=== PATIENT | female | born 1955 | race Caucasian/White ===

== ENCOUNTER 2017-04-18 17:55 | Emergency (ER) | payer BC ==
[~2017-04-18] VITALS: Ht 160 cm; Wt 74.9 kg
[2017-04-18] MEDS ORDERED: OMEP20CA3 (18:13)
[2017-04-18] MEDS ORDERED: ASPIRIN 81 MG CHEW TABLET PO ONE (18:15)
[2017-04-18 18:34] LABS: BASO # 0.1 K/mm3 (0.0-0.2); BASO % 0.8 % (0.0-1.0); EOS # 0.2 K/mm3 (0.0-0.50); EOS % 2.8 % (0.0-3.0); LARGE UNSTAINED CELL # 0.1 K/mm3 (0.0-0.4); LARGE UNSTAINED CELL % 1.4 % (0.0-4.0); LYMPH # 3.2 K/mm3 (1.5-4.5); LYMPH % 39.1 % (24.0-44.0); MEAN CORPUSCULAR HEMOGLOBIN 32.5 pg (27.0-33.0); MEAN CORPUSCULAR HGB CONC 34.4 g/dl (32.0-36.5); MEAN CORPUSCULAR VOLUME 94.6 fl (80.0-96.0); MONO # 0.4 K/mm3 (0.0-0.8); MONO % 5.5 % (0.0-5.0); NEUTROPHILS % 50.4 % (36.0-66.0); PLATELET COUNT, AUTOMATED 202 k/mm3 (150-450); RED CELL DISTRIBUTION WIDTH 12.7 % (11.5-14.5); WHITE BLOOD COUNT 7.9 K/mm3 (4.0-10.0)
[2017-04-18 18:53] LABS: ALBUMIN 4.1 GM/DL (3.2-5.2); ALBUMIN/GLOBULIN RATIO 1.11 (1.00-1.93); ALKALINE PHOSPHATASE 167 U/L (45-117); ALT/SGPT 23 U/L (12-78); ANION GAP 4 MEQ/L (8-16); AST/SGOT 16 U/L (15-37); BILIRUBIN,DIRECT < 0.1 MG/DL (0.0-0.2); BILIRUBIN,TOTAL 0.3 MG/DL (0.2-1.0); BLOOD UREA NITROGEN 19 MG/DL (7-18); CARBON DIOXIDE LEVEL 28 MEQ/L (21-32); CHLORIDE LEVEL 109 MEQ/L (98-107); CREATININE FOR GFR 0.77 MG/DL (0.55-1.02); GLOMERULAR FILTRATION RATE > 60.0 (>45); GLUCOSE, FASTING 103 MG/DL (80-110); POTASSIUM SERUM 5.1 MEQ/L (3.5-5.1); SODIUM LEVEL 141 MEQ/L (136-145); TOTAL PROTEIN 7.8 GM/DL (6.4-8.2)
--- NOTE | 2017-04-18 19:08 | REP ---
Chest two views HISTORY: Chest pain Comparison: 09/04/2014 The lungs are clear. The heart is normal in size. The pulmonary vasculature is normal in appearance. Degenerative change is present in the thoracic spine. IMPRESSION: No acute disease. Signed by Jake Harris MD 04/18/2017 07:00 P
[2017-04-18 19:44] VITALS: BP 159/68
--- NOTE | 2017-04-20 05:58 | ECGEPIP ---
Stationary ECG Study [facility] - ED Test Date: 2017-04-18 Pat Name: COLIN FONTENOT Department: Room: - Gender: F Student Records Specialist: JT : 1955 Requested By: LIZ Paige Order Number: [id number] Reading MD: Azar Su Measurements Intervals [place] Rate: 68 P: 73 OK: 154 QRS: 56 QRSD: 81 T: 46 QT: 365 QTc: 391 Interpretive Statements SINUS RHYTHM Electronically Signed On 04-20-2017 5:58:27 EDT by Azar Su
== END 2017-04-18 19:54 | disposition home or self-care (01) ==
LOC: M ED 17:55
DX: R07.9 Chest pain, unspecified (principal); K21.9 Gastro-esophageal reflux disease without esophagitis; F17.200 Nicotine dependence, unspecified, uncomplicated; Z79.899 Other long term (current) drug therapy; Z91.011 Allergy to milk products

== ENCOUNTER → 2017-06-05 | Outpatient (CLI) | payer BC ==
[~2017-06-05] MED LIST: ISOVUE-370 76% 100ML VIAL (Q9967) As Ordered ONE; OMEP20CA3
--- NOTE | 2017-06-05 13:37 | REPMRS ---
Patient History The patient states she has not had a clinical breast exam in over a year. Patient is postmenopausal and has history of other cancer at age 26. No known family history of cancer. Digital Mammo Screening Bilat: June 05, 2017 - Exam #: [id number] Bilateral CC and MLO view(s) were taken. Technologist: Chante Shelley Technologist Prior study comparison: April 16, 2015, digital woman screen mammo, performed at [facility]. FINDINGS: There are scattered fibroglandular densities. There has been no change in the appearance of the mammogram from the prior studies. There is a mild amount of residual fibroglandular tissue which is fairly symmetric. There is no interval development of dominant mass, architectural distortion, or clustered microcalcification suggestive of malignancy. ASSESSMENT: BI-RADS/ACR category 1 mammogram. Negative. Recommendation Routine screening mammogram in 1 year (for women over age 40). This mammogram was interpreted with the aid of an FDA-approved computer-aided dectection system. Electronically Signed By: Zoran Felton MD 06/05/17 [id number]
[2017-06-05 14:54] LABS: FREE T4 1.08 NG/DL (0.76-1.46)
--- NOTE | 2017-06-06 10:39 | REP ---
Clinical: Pulmonary nodule. Technique: Axial contrast enhanced images from the thoracic inlet to the upper abdomen using 100 ml Isovue 370 intravenous contrast material with coronal and sagittal re-formations. Comparison: 01/12/2015. Findings: A stable 3 mm noncalcified nodule in the posterior right upper lobe (image 31) remains unchanged compared to 01/12/2015 and requires no further investigation. Lung portillo are otherwise well aerated, symmetric and clear. No further consolidation, significant nodule or mass lesion. No pleural effusion/reaction or pneumothorax. Tracheobronchial tree is patent. No axillary, hilar, or mediastinal adenopathy. Thoracic aorta without aneurysm or dissection. Atherosclerotic changes to the coronary arteries noted without cardiomegaly or pericardial effusion. Surrounding musculoskeletal structures are intact. Limited upper abdomen demonstrates normal bilateral adrenal glands. Impression: 1. Stable 3 mm noncalcified granuloma in the right upper lobe unchanged compared to 2014 and requires no further investigation. 2. No new acute or significant mediastinal or pleuroparenchymal process. Signed by Zi Poole MD 06/06/2017 10:31 A
== END ==
LOC: M RAD 10:39 → M LAB 10:39
PROVIDERS: ATTEND Physician Assistant
DX: R91.1 Solitary pulmonary nodule (principal)
CPT/HCPCS: 71260; 80061; 82306; 84439; 84443; 86803; G0202; Q9967

== ENCOUNTER → 2017-10-04 | Outpatient (REF) | payer BC ==
[2017-10-05 10:38] LABS: RUBELLA IgG QUALITATIVE IMMUNE (IMMUNE)
[2017-10-06 08:06] LABS: MUMPS VIRUS IgG ANTIBODY >300.0 AU/mL (Immune >10.9)
== END ==
LOC: M SFHCADAM 14:47
DX: Z02.1 Encounter for pre-employment examination (principal)

== ENCOUNTER → 2019-04-11 | Outpatient (CLI) | payer BC ==
[~2019-04-11] MED LIST changes: +CHAN1PAK11 PO; +FLUC150T PO; +IBUP-1022 PO; -ISOVUE-370 76% 100ML VIAL (Q9967) As Ordered ONE; +OMEP1CAP73 PO; -OMEP20CA3; +QC A650T3 PO; +RANI1TAB38 PO; +TUMS750C5 PO
--- NOTE | 2019-04-11 15:03 | REP ---
REASON: Lung mass followup. COMPARISON: Latest prior 12/29/2018. The lack of intravenous contrast decreases the sensitivity of the exam. CT I-logic protocol: The mediastinum and pulmonary viktoriya are essentially unchanged. There is no evidence of a mass or adenopathy. There are no pleural or pericardial effusions. No significant change is seen involving the imaged upper abdomen or imaged osseous structures. Evaluation of the lung field shows the left upper lobe nodule seen previously to have resolved with a minimal vague and subtle density remaining. The nodular density in the left lower lobe has completely abated. There are no new abnormal nodules, masses, or opacities. There is an incidental calcified granuloma in the right upper lobe. IMPRESSION: Marked improvement as described above. Electronically Signed by Aristeo Mckeon DO 04/11/2019 03:12 P
== END ==
LOC: M RAD 13:21
PROVIDERS: ATTEND Internal Medicine Pulmonary Disease
DX: R91.8 Other nonspecific abnormal finding of lung field (principal)

== ENCOUNTER 2019-05-09 06:42 | Day surgery (SDC) | payer BC ==
[~2019-05-09] VITALS: Ht 157.5 cm; Wt 68.9 kg
[~2019-05-09 06:42] MED LIST changes: -OMEP1CAP73 PO; +OMEP20CA4 PO
[2019-05-09] MEDS: NS 1,000 ML IV ONE (07:08)
[2019-05-09] MEDS ORDERED: LIDOCAINE 2% INJ 100 MG/5 ML SDV (FOR ANES.) As Ordered ONE (07:10)
[2019-05-09] MEDS ORDERED: PROPOFOL 200 MG/20 ML VIAL As Ordered ONE (07:10)
[2019-05-09] MEDS ORDERED: fentaNYL 100 MCG/2 ML INJECTION (J3010) As Ordered ONE (07:40)
--- NOTE | 2019-05-09 07:57 | ROOR ---
Patient Name: India Giron Procedure Date: 05/09/2019 7:30 AM Date of : 1955 Age: 63 Room: [facility] Gender: Female Note Status: Finalized Procedure: Upper Endoscopy + Biopsies Indications: Heartburn, Exclusion of Estrada's esophagus Providers: Dipesh Sanchez MD Referring MD: Austin Martinez MD Requesting Provider: Medicines: Monitored Anesthesia Care Complications: No immediate complications. Procedure: Pre-Anesthesia Assessment: - The heart rate, respiratory rate, oxygen saturations, blood pressure, adequacy of pulmonary ventilation, and response to care were monitored throughout the procedure. The Endoscope was introduced through the mouth, and advanced to the second part of duodenum. The upper GI endoscopy was accomplished without difficulty. The patient tolerated the procedure well. Findings: The Z-line was irregular and was found 35 cm from the incisors. Multiple biopsies were obtained with cold forceps for evaluation to rule out Estrada's Esophagus randomly at the gastroesophageal junction. A small hiatal hernia was present. Diffuse mildly erythematous mucosa without bleeding was found in the gastric antrum. Biopsies were taken with a cold forceps for Helicobacter pylori testing. The exam of the duodenum was otherwise normal. Impression: - Z-line irregular, 35 cm from the incisors. - Small hiatal hernia. - Erythematous mucosa in the antrum. Biopsied. - Multiple biopsies were obtained at the gastroesophageal junction. - The examination was otherwise normal. Recommendation: - Patient has a contact number available for emergencies. The signs and symptoms of potential delayed complications were discussed with the patient. Return to normal activities tomorrow. Written discharge instructions were provided to the patient. - Resume previous diet. - Discharge patient to home. - Follow an antireflux regimen. - Continue present medications. - Await pathology results. - Telephone GI clinic for pathology results in 1 week. - Return to referring physician. - The findings and recommendations were discussed with the patient's family. Dipesh Sanchez MD Dipesh Sanchez MD 05/09/2019 7:56:25 AM Electronically signed by Dipesh Sanchez MD Number of Addenda: 0 Note Initiated On: 05/09/2019 7:30 AM Estimated Blood Loss: Estimated blood loss: none.
[2019-05-09] MEDS ORDERED: ePHEDrine SULFATE 25 MG/5 ML(5MG/ML) SYRINGE As Ordered ONE (08:11)
--- NOTE | 2019-05-09 08:19 | ROOR ---
Patient Name: India Giron Procedure Date: 05/09/2019 7:31 AM Date of : 1955 Age: 63 Room: [facility] Gender: Female Note Status: Finalized Procedure: Total Colonoscopy to Cecum + Hot Snare Polypectomy + Hemoclip Indications: Screening for colorectal malignant neoplasm Providers: Dipesh Sanchez MD Referring MD: Austin Martinez MD Requesting Provider: Medicines: Monitored Anesthesia Care Complications: No immediate complications. Procedure: Pre-Anesthesia Assessment: - The heart rate, respiratory rate, oxygen saturations, blood pressure, adequacy of pulmonary ventilation, and response to care were monitored throughout the procedure. The Colonoscope was introduced through the anus and advanced to the cecum, identified by appendiceal orifice and ileocecal valve. The colonoscopy was performed without difficulty. The patient tolerated the procedure well. The quality of the bowel preparation was excellent. Findings: The perianal and digital rectal examinations were normal. Internal hemorrhoids were found during retroflexion. The hemorrhoids were small and Grade I (internal hemorrhoids that do not prolapse). Scattered small-mouthed diverticula were found in the recto-sigmoid colon, sigmoid colon and descending colon. A medium polyp was found at 20 cm proximal to the anus. The polyp was pedunculated. The polyp was removed with a hot snare. Resection and retrieval were complete. To prevent bleeding after the polypectomy, one hemostatic clip was successfully placed (MR conditional). There was no bleeding at the end of the procedure. The exam was otherwise without abnormality on direct and retroflexion views. Impression: - Internal hemorrhoids. - Diverticulosis in the recto-sigmoid colon, in the sigmoid colon and in the descending colon. - One medium polyp at 20 cm proximal to the anus, removed with a hot snare. Resected and retrieved. Clip (MR conditional) was placed. - The examination was otherwise normal on direct and retroflexion views. - The exam was otherwise normal to the cecum. Recommendation: - Patient has a contact number available for emergencies. The signs and symptoms of potential delayed complications were discussed with the patient. Return to normal activities tomorrow. Written discharge instructions were provided to the patient. - High fiber diet. - Discharge patient to home. - Continue present medications. - Await pathology results. - Telephone GI clinic for pathology results in 1 week. - Repeat colonoscopy in 5 years for surveillance based on pathology results. - Return to referring physician. - Check Portal Online for Path Results.([email or web address]) - The findings and recommendations were discussed with the patient's family. Dipesh Sanchez MD Dipesh Sanchez MD 05/09/2019 8:19:02 AM Electronically signed by Dipesh Sanchez MD Number of Addenda: 0 Note Initiated On: 05/09/2019 7:31 AM Estimated Blood Loss: Estimated blood loss: none.
[2019-05-09 08:30] VITALS: BP 134/83
== END 2019-05-09 08:46 | disposition home or self-care (01) ==
LOC: M OPP 06:42
PROVIDERS: ATTEND Internal Medicine Gastroenterology
DX: Z12.11 Encounter for screening for malignant neoplasm of colon (principal); K64.0 First degree hemorrhoids; D12.6 Benign neoplasm of colon, unspecified; K57.30 Diverticulosis of large intestine without perforation or abscess without bleeding; K22.8 Other specified diseases of esophagus; K44.9 Diaphragmatic hernia without obstruction or gangrene; K31.89 Other diseases of stomach and duodenum; R12 Heartburn; F17.210 Nicotine dependence, cigarettes, uncomplicated
CPT/HCPCS: 43239; 45385; 88305; J3010

== ENCOUNTER → 2020-02-04 | Outpatient (REF) | payer BC ==
[~2020-02-04] MED LIST changes: +OMEP1CAP73 PO; -OMEP20CA4 PO
[2020-02-04 17:19] LABS: BASO % 0.3 % (0.0-1.0); EOS # 0.1 10^3/uL (0.0-0.5); EOS % 0.9 % (0.0-3.0); HEMOGLOBIN 15.8 g/dl (12.0-15.5); LYMPH # 2.8 10^3/uL (1.5-5.0); LYMPH % 30.6 % (24.0-44.0); MEAN CORPUSCULAR HEMOGLOBIN 31.9 pg (27.0-33.0); MEAN CORPUSCULAR HGB CONC 32.9 g/dl (32.0-36.5); MEAN CORPUSCULAR VOLUME 96.8 fl (80.0-96.0); MONO # 0.7 10^3/uL (0.0-0.8); MONO % 7.5 % (0.0-5.0); NEUTROPHILS # 5.5 10^3/uL (1.5-8.5); NEUTROPHILS % 60.5 % (36.0-66.0); PLATELET COUNT, AUTOMATED 215 10^3/uL (150-450); RED BLOOD COUNT 4.96 10^6/uL (4.00-5.40); WHITE BLOOD COUNT 9.1 10^3/uL (4.0-10.0)
[2020-02-04 17:39] LABS: ALBUMIN 3.9 GM/DL (3.2-5.2); ALT/SGPT 18 U/L (12-78); BILIRUBIN,TOTAL 0.3 MG/DL (0.2-1.0); BLOOD UREA NITROGEN 19 MG/DL (7-18); C REACTIVE PROTEIN QUANTITATIV < 0.30 MG/DL (0.00-0.30); CALCIUM LEVEL 9.9 MG/DL (8.8-10.2); CARBON DIOXIDE LEVEL 30 MEQ/L (21-32); CHLORIDE LEVEL 109 MEQ/L (98-107); CREATININE FOR GFR 0.83 MG/DL (0.55-1.30); GLOMERULAR FILTRATION RATE > 60.0 (>45); GLUCOSE, FASTING 118 MG/DL (70-100); POTASSIUM SERUM 4.4 MEQ/L (3.5-5.1); SODIUM LEVEL 143 MEQ/L (136-145); TOTAL PROTEIN 7.1 GM/DL (6.4-8.2)
[2020-02-04 19:34] LABS: ERYTHROCYTE SEDIMENTATION RATE 6 mm/hr (0-30)
== END ==
LOC: M SFHCADAM 14:21
PROVIDERS: ATTEND Family Medicine
DX: H46.9 Unspecified optic neuritis (principal)

== ENCOUNTER → 2020-05-04 | Outpatient (CLI) | payer BC ==
--- NOTE | 2020-05-20 18:04 | REP ---
LOW DOSE LUNG SCREENING CT: 05/04/20 CLINICAL: Nicotine dependence. COMPARISON: 04/11/19, 01/12/15, 06/05/17. FINDINGS: Bilateral lung portillo are well aerated. Minimal chronic scarring along with few chronic nodules including 3mm centrally calcified nodule in the post periphery of the right lung (image 31) remain stable. The current examination demonstrates few non-solid densities primarily noted in the left lung measuring up to 8mm (image 35). No further consolidation, suspicious nodule or mass lesion noted. No effusion. No pneumothorax. Tracheobronchial tree is patent. IMPRESSION: 1. Few stable chronic changes unchanged compared through 2017. 2. Small nonsolid densities up to 8mm. Findings constitute Lung RADS category 2 and management recommendations include annual low dose CT surveillance. MTDD
== END ==
LOC: M RAD 12:52
PROVIDERS: ATTEND Internal Medicine Pulmonary Disease
DX: F17.210 Nicotine dependence, cigarettes, uncomplicated (principal)

== ENCOUNTER → 2020-05-04 | Outpatient (REF) | payer BC ==
[2020-05-04 18:01] LABS: HEMOGLOBIN A1c 5.8 %
[2020-05-04 18:18] LABS: CHOLESTEROL RISK RATIO 3.59 (<5); THYROID STIMULATING HORMONE 0.812 uIU/ML (0.358-3.740)
== END ==
LOC: M SFHCADAM 16:36
PROVIDERS: ATTEND Physician Assistant
DX: D75.1 Secondary polycythemia (principal); D75.89 Other specified diseases of blood and blood-forming organs; H47.019 Ischemic optic neuropathy, unspecified eye; H53.9 Unspecified visual disturbance

== ENCOUNTER → 2020-06-22 | Outpatient (CLI) | payer BC ==
[~2020-06-22] MED LIST changes: +PROHANCE 279.3MG/ML 15ML VIAL As Ordered ONE
--- NOTE | 2020-06-23 08:50 | REP ---
INDICATION: NEW ON SET OF ZAPIEN'S. COMPARISON: April 28, 2010.. TECHNIQUE: Axial and sagittal imaging planes are utilized for T1 and T2-weighted scans. Sequences include spin-echo, fast spin echo, FLAIR, and diffusion weighted sequences. 15 mL of intravenous ProHance was administered and postcontrast imaging is included. FINDINGS: No bony calvarial defect is seen. Craniocervical junction and upper cervical cord are unremarkable. There is no MR evidence of significant paranasal sinus disease. The facial and orbital soft tissues are unremarkable. FLAIR and turbo spin echo T2 weighted scans demonstrate multiple foci of subcortical and periventricular white matter hyperintensities in the frontal and parietal lobes and to a lesser extent temporal lobes bilaterally. These are more extensive and more numerous than on the 04/28/2010 study. There are nonspecific. Small vessel atherosclerotic changes for versus demyelinating lesions versus areas of gliosis associated with migraine. There is no evidence of restricted diffusion in any of these or or other evidence of restricted diffusion on diffusion-weighted scans. No evidence of infarct. No intracranial mass or extra-axial fluid collection is seen. Postcontrast images show enhancement in normal vasculature. No abnormal gadolinium enhancement is seen intracranially. IMPRESSION: Multifocal periventricular and subcortical white matter T2 hyperintensities, increased in number and extent from the April 28, 2010 prior study. Nonspecific as above. Most likely small vessel atherosclerotic changes. Otherwise no acute intracranial abnormality. <Electronically signed by Anthony Apodaca > 06/23/20 [id number]
== END ==
LOC: M RAD 13:39
PROVIDERS: ATTEND Physician Assistant
DX: R51.9 Headache, unspecified (principal); R90.82 White matter disease, unspecified
CPT/HCPCS: 70553; A9576

== ENCOUNTER → 2020-11-12 | Outpatient (CLI) | payer BC ==
[~2020-11-12] MED LIST changes: -PROHANCE 279.3MG/ML 15ML VIAL As Ordered ONE
--- NOTE | 2020-11-12 17:24 | REP ---
INDICATION: ABN FINDING OF LUNG. COMPARISON: Comparison chest CT studies are reviewed from May 04, 2020, April 11, 2019, and December 29, 2018.. TECHNIQUE: Helical scanning is acquired. 3 mm axial images are generated. Coronal and sagittal MPR and coronal MIP images are generated. FINDINGS: Preliminary digital senior copywriter radiographs are unremarkable. No infiltrate is seen. There is no evidence of pleural effusion or pericardial effusion. No endobronchial disease is seen. No hilar or mediastinal mass or adenopathy is observed. Mild left coronary artery vascular calcification is seen. Normal adrenal glands are observed. There is a small accessory splenule in the left upper quadrant. No extra thoracic mass or adenopathy is seen. In the lung portillo there is a stable 3 mm noncalcified pulmonary nodule in the left upper lobe. This is unchanged from December 29, 2018. There is a granulomatous calcification in the left lower lobe which is unchanged. A 2-3 mm noncalcified nodule is seen in the right middle lobe on page 51 of 112 in series 201 of today's study. This is visible in retrospect and is unchanged from December 29, 2018 as well. no new pulmonary nodule is appreciated. No other pulmonary nodule is seen. No bony destructive lesion is appreciated. IMPRESSION: Stable pulmonary nodular densities as above. No active cardiopulmonary disease. <Electronically signed by Anthony Apodaca > 11/12/20 [id number]
== END ==
LOC: M RAD 14:28
PROVIDERS: ATTEND Internal Medicine Pulmonary Disease
DX: R91.8 Other nonspecific abnormal finding of lung field (principal)

== ENCOUNTER → 2022-12-25 | Outpatient (CLI) | payer MEDICARE ==
[~2022-12-25] MED LIST changes: -FLUC150T PO; +FLUC150T9 PO
== END ==
LOC: M RAD 14:25
PROVIDERS: ATTEND Internal Medicine Pulmonary Disease
DX: Z12.2 Encounter for screening for malignant neoplasm of respiratory organs (principal); F17.210 Nicotine dependence, cigarettes, uncomplicated; R91.1 Solitary pulmonary nodule

== ENCOUNTER → 2023-06-19 | Outpatient (CLI) | payer MEDICARE ==
[~2023-06-19] MED LIST changes: +E-Z-PAQUE 96% w/w SUSP 176GM BTL As Ordered ONE; +VARIBAR NECTAR 40% w/v 240ML SUSP BTL As Ordered ONE; +VARIBAR PUDDING 40% w/v 230ML TUBE As Ordered ONE
== END ==
LOC: M RAD 11:12
PROVIDERS: ATTEND Otolaryngology
DX: R13.19 Other dysphagia (principal)

== ENCOUNTER → 2023-06-22 | Outpatient (REF) | payer MEDICARE ==
[~2023-06-22] MED LIST changes: -E-Z-PAQUE 96% w/w SUSP 176GM BTL As Ordered ONE; -VARIBAR NECTAR 40% w/v 240ML SUSP BTL As Ordered ONE; -VARIBAR PUDDING 40% w/v 230ML TUBE As Ordered ONE
[2023-06-22 17:31] LABS: BASO % 0.5 % (0.0-1.0); EOS # 0.1 10^3/uL (0.0-0.5); EOS % 1.2 % (0.0-3.0); HEMATOCRIT 49.3 % (36.0-47.0); HEMOGLOBIN 15.9 g/dl (12.0-15.5); LYMPH # 2.2 10^3/uL (1.5-5.0); LYMPH % 33.7 % (24.0-44.0); MEAN CORPUSCULAR HEMOGLOBIN 31.8 pg (27.0-33.0); MEAN CORPUSCULAR HGB CONC 32.3 g/dl (32.0-36.5); MEAN CORPUSCULAR VOLUME 98.6 fl (80.0-96.0); MONO # 0.5 10^3/uL (0.0-0.8); MONO % 7.9 % (2.0-8.0); NEUTROPHILS # 3.7 10^3/uL (1.5-8.5); NEUTROPHILS % 56.5 % (36.0-66.0); PLATELET COUNT, AUTOMATED 246 10^3/uL (150-450); WHITE BLOOD COUNT 6.6 10^3/uL (4.0-10.0)
[2023-06-22 17:49] LABS: HEMOGLOBIN A1c 5.3 % (4.0-6.0)
[2023-06-22 17:52] LABS: CREATININE, URINE 96.8 MG/DL
[2023-06-22 17:53] LABS: MAU/CREAT RATIO 5.1 MCG/MG (0.0-30.0)
[2023-06-22 17:57] LABS: FREE T4 0.95 NG/DL (0.89-1.76); THYROID STIMULATING HORMONE 2.614 uIU/ML (0.55-4.78)
[2023-06-22 18:00] LABS: ALBUMIN 4.3 G/DL (3.2-5.2); ALKALINE PHOSPHATASE 188 U/L (46-116); ALT/SGPT 12 U/L (7.0-40); AST/SGOT 17 U/L (<34); BILIRUBIN,TOTAL 0.4 MG/DL (0.3-1.2); BLOOD UREA NITROGEN 13 MG/DL (9-23); CALCIUM LEVEL 10.5 MG/DL (8.3-10.6); CARBON DIOXIDE LEVEL 29 MMOL/L (20-31); CHLORIDE LEVEL 108 MMOL/L (98-107); CHOLESTEROL LEVEL 170 MG/DL (<200); CHOLESTEROL RISK RATIO 3.49 (<5); CREATININE FOR GFR 0.57 MG/DL (0.55-1.30); FOLATE > 24.0 NG/ML (>5.4); GLOMERULAR FILTRATION RATE > 60.0 (>45); GLUCOSE, FASTING 87 MG/DL (74-106); HDL CHOLESTEROL 48.7 MG/DL (>40); LDL CHOLESTEROL 85.1 MG/DL (<100); NON-HDL-C 121.3 MG/DL; POTASSIUM SERUM 4.4 MMOL/L (3.5-5.1); SODIUM LEVEL 144 MMOL/L (136-145); TOTAL PROTEIN 7.3 G/DL (5.7-8.2); TRIGLYCERIDES LEVEL 181 MG/DL (<150)
[2023-06-22 18:02] LABS: VITAMIN B12 LEVEL 259 PG/ML (211-911)
== END ==
LOC: M SFHCADAM 12:38
PROVIDERS: ATTEND Physician Assistant
DX: Z00.00 Encounter for general adult medical examination without abnormal findings (principal); R03.0 Elevated blood-pressure reading, without diagnosis of hypertension; F17.210 Nicotine dependence, cigarettes, uncomplicated; K21.9 Gastro-esophageal reflux disease without esophagitis; Z13.220 Encounter for screening for lipoid disorders; E55.9 Vitamin D deficiency, unspecified; M81.0 Age-related osteoporosis without current pathological fracture; R73.03 Prediabetes; Z79.899 Other long term (current) drug therapy

== ENCOUNTER → 2024-03-04 | Outpatient (CLI) | payer MEDICARE | LOC: M RAD 12:48 | PROVIDERS: ATTEND Internal Medicine Pulmonary Disease | DX: Z12.2 Encounter for screening for malignant neoplasm of respiratory organs (principal); F17.210 Nicotine dependence, cigarettes, uncomplicated ==

== ENCOUNTER → 2025-04-06 | Outpatient (CLI) | payer MEDICARE | LOC: M RAD 13:51 | PROVIDERS: ATTEND Physician Assistant | DX: Z12.2 Encounter for screening for malignant neoplasm of respiratory organs (principal); F17.211 Nicotine dependence, cigarettes, in remission; J43.9 Emphysema, unspecified; J47.9 Bronchiectasis, uncomplicated; I70.0 Atherosclerosis of aorta; I25.10 Atherosclerotic heart disease of native coronary artery without angina pectoris ==